=== PATIENT | male | born 1970 ===

== ENCOUNTER → 2016-10-25 | Outpatient (CLI) | payer OTHER | END | disposition home or self-care (01) | LOC: GMAB 14:23 | PROVIDERS: ATTEND Family Medicine | DX: R59.9 Enlarged lymph nodes, unspecified (principal) ==

== ENCOUNTER → 2016-10-26 | Outpatient (CLI) | payer OTHER ==
--- NOTE | 2016-10-27 09:07 | US ---
Superficial sonogram right axilla. Indication: ENLARGED LYMPH NODES Comparison: None. Impression: At the palpable area of concern there are three hyperechoic masses measuring up to 4.7 cm, 2.8 cm, and 2.2 cm respectfully. These may reflect subcutaneous lipomas but are nonspecific. Dedicated CT of the axilla recommended for better evaluation. Electronically signed by: Luis Eduardo Valencia MD 10/27/2016 9:06 AM CDT
== END | disposition home or self-care (01) ==
LOC: US 14:47
PROVIDERS: ATTEND Family Medicine
DX: R59.9 Enlarged lymph nodes, unspecified (principal)

== ENCOUNTER → 2016-11-07 | Outpatient (CLI) | payer OTHER, SELFPAY ==
--- NOTE | 2016-11-07 11:24 | CT ---
EXAM DESCRIPTION: Upper Extremity CLINICAL HISTORY: 45 years Male, PAIN TECHNIQUE: After IV contrast was administered thin slice axial imaging of the right shoulder was performed. The data was reconstructed for interpretation. FINDINGS: A vitamin E marker was placed overlying the area of palpable abnormality of the right medial arm. Subjacent to this area is a encapsulated lipoma which contains small amount of soft tissue density likely compatible with vascular elements. This measures approximately 6.4 x 3.0 x 7.9 cm in diameter. This lipoma is superficial to the right brachial artery and vein. The remaining soft tissues of the imaged right upper extremity and shoulder are unremarkable. The osseous structures on today's study no evidence of fracture or considerable degenerative change. The incompletely imaged right lung is clear. IMPRESSION: There is a encapsulated 6.4 x 3.0 x 7.9 cm lipoma with some soft tissue components is noted within the area of concern. No lymphadenopathy. Electronically signed by: Wilmer Sage MD 11/07/2016 11:23 AM CDT
== END | disposition home or self-care (01) ==
LOC: CT 08:00
PROVIDERS: ATTEND Family Medicine
DX: R59.9 Enlarged lymph nodes, unspecified (principal)

== ENCOUNTER → 2018-10-03 | Outpatient (CLI) | payer OTHER | LOC: GMAE 10:47 | PROVIDERS: ATTEND Family Medicine | DX: Z00.01 Encounter for general adult medical examination with abnormal findings (principal) ==

== ENCOUNTER → 2019-12-02 | Outpatient (CLI) | payer OTHER | LOC: GMAE 11:30 | PROVIDERS: ATTEND Family Medicine | DX: Z00.00 Encounter for general adult medical examination without abnormal findings (principal) ==

== ENCOUNTER 2020-01-09 05:39 | Day surgery (SDC) | payer OTHER ==
[2020-01-09] MEDS ORDERED: LACTATED RINGERS 1,000 ML ONE (06:28)
[2020-01-09] MEDS ORDERED: PROPOFOL 200 MG/20 ML VIAL IV ONE (07:00)
[2020-01-09] MEDS ORDERED: LIDOCAINE 1% 10 ML VIAL INJ ONE (07:00)
[2020-01-09] MEDS ORDERED: LACTATED RINGERS 1,000 ML IVS ONE (07:35)
[2020-01-09] MEDS ORDERED: fentaNYL CITRATE INJ 50 MCG/ML 2 ML AMP ONE (08:07)
--- NOTE | 2020-01-09 09:02 | OP ---
DATE OF PROCEDURE: 01/09/20 PREOPERATIVE DIAGNOSIS: 1. Screening colonoscopy. POSTOPERATIVE DIAGNOSIS: 1. Colonic polyp, 4 mm, at approximately 30 cm, and 2.5 mm at about the same area. PROCEDURE: 1. Colonoscopy. SURGEON: Freddie Murguia MD COMPLICATIONS: None. ESTIMATED BLOOD LOSS: None. PLAN: Discharge. INDICATION: As stated. PROCEDURE: General anesthesia was induced in the lateral position. Digital rectal exam was normal. The colonoscope was introduced and advanced to the cecum without difficulty. There was liquid stool that needed to be irrigated and aspirated, but we got a good exam with an adequate prep. Upon withdrawal, there were no proximal polyps seen, but at about 30 cm, there was a 4 mm polyp hidden behind a fold. We got it out with a hot snare without difficulty and fully retrieved. Just near that also, there was a 2.5 mm polyp that was removed with a forceps. Retroflexion was normal. The patient tolerated the procedure and was taken to Recovery to be discharged. #[id number] cc: Stormy Grissom MD MTD
[2020-01-09 09:31] VITALS: BP 128/83; TEMP 96.8; O2SAT 98
== END 2020-01-09 09:30 | disposition home or self-care (01) ==
LOC: AMB 05:39
PROVIDERS: ATTEND Surgery
DX: Z12.11 Encounter for screening for malignant neoplasm of colon (principal); D12.6 Benign neoplasm of colon, unspecified; E11.9 Type 2 diabetes mellitus without complications; I10 Essential (primary) hypertension; F17.220 Nicotine dependence, chewing tobacco, uncomplicated; E78.00 Pure hypercholesterolemia, unspecified; E66.9 Obesity, unspecified; Z79.899 Other long term (current) drug therapy; Z79.84 Long term (current) use of oral hypoglycemic drugs; Z79.1 Long term (current) use of non-steroidal anti-inflammatories (NSAID)
CPT/HCPCS: 00812; 36416; 45380; 45385; 82948; J3010; J3490; J7120